=== PATIENT | male | born 1985 | race Two or more races ===

== ENCOUNTER → 2020-07-22 | Emergency (ER) | payer OTHER ==
[~2020-07-22] VITALS: Ht 188 cm; Wt 72.6 kg
== END | disposition designated cancer center or children's hospital (05) ==
LOC: ER 18:25
DX: S92.061A Displaced intraarticular fracture of right calcaneus, initial encounter for closed fracture (principal); W18.39XA Other fall on same level, initial encounter; Y93.51 Activity, roller skating (inline) and skateboarding; Y92.89 Other specified places as the place of occurrence of the external cause; Y99.8 Other external cause status; Z03.818 Encounter for observation for suspected exposure to other biological agents ruled out